=== PATIENT | female | born 1975 | race Caucasian/White ===

== ENCOUNTER 2019-01-24 11:53 | Emergency (ER) | payer BC, MEDICAID ==
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
--- NOTE | 2019-01-25 09:48 | Diagnostic Imaging Report ---
CT scan of the brain without contrast History: Trauma Total DLP equals 433 CTDI equals 1.0 Axial sections were obtained from the base of the skull to the vertex. There is a normal ventricular system size. No focal parenchymal lesions are seen. No evidence of any mass effect or shift of midline structures. No extra-axial masses or abnormal fluid collections. Impression: Negative examination
--- NOTE | 2019-01-25 09:48 | Diagnostic Imaging Report ---
Exam: CT examination of the lumbar sacral spine. HISTORY: Trauma Total DLP equals 1108 CTDI equals 39.8 Findings: Multiple contiguous thin section of lumbar sacral spine were obtained without the administration of contrast material. The study was performed in axial plane with coronal and sagittal reconstruction technique. The study demonstrates no evidence for acute fracture dislocation. No prevertebral soft tissue swelling is noted. Mild degenerative changes are noted with narrowing of the L5-S1 intravertebral disc space and vacuum disc phenomenon. IMPRESSION mild degenerative narrowing of the L5-S1 intervertebral disc space. No evidence of fracture dislocation.
--- NOTE | 2019-01-25 09:50 | Diagnostic Imaging Report ---
Exam: CT examination cervical spine. HISTORY: Trauma Total DLP equals 421 CTDI equals 23.1 Findings: Multiple contiguous thin section of the cervical spine obtained in axial plane with coronal sagittal reconstruction technique. The study demonstrates mild degenerative narrowing of the C5-C6 C6-C7 intervertebral disc space with mild anterior spurring and bridging. There is no evidence of fracture dislocation or prevertebral soft tissue swelling. The posterior elements are intact. Odontoid process is normal. IMPRESSION: Mild degenerative changes lower cervical spine.
== END 2019-01-24 14:46 | disposition home or self-care (01) ==
LOC: ER 11:53
DX: S33.9XXA Sprain of unspecified parts of lumbar spine and pelvis, initial encounter (principal); S39.012A Strain of muscle, fascia and tendon of lower back, initial encounter; S13.4XXA Sprain of ligaments of cervical spine, initial encounter; S16.1XXA Strain of muscle, fascia and tendon at neck level, initial encounter; I10 Essential (primary) hypertension; M19.90 Unspecified osteoarthritis, unspecified site; V89.2XXA Person injured in unspecified motor-vehicle accident, traffic, initial encounter; Y93.89 Activity, other specified; Y92.410 Unspecified street and highway as the place of occurrence of the external cause; Y99.8 Other external cause status
CPT/HCPCS: 70450-TC; 72125-TC; 72131-TC; 81025-TC